=== PATIENT | female | born 1950 | race African-American/Black ===

== ENCOUNTER 2016-11-07 00:46 | Inpatient (IN) ==
[2016-11-07] MEDS ORDERED: HYDROmorphone 2 MG/1 ML VIAL IV STA (01:24)
[2016-11-07] MEDS ORDERED: ASPIRIN 325 MG TABLET PO STA (01:24)
[2016-11-07] MEDS ORDERED: ONDANSETRON 4 MG/2 ML VIAL IV STA ×2 (01:24→08:31)
[2016-11-07] MEDS ORDERED: NITROGLYCERIN 2% OINT 1 INCH/GM PACK TOP STA (01:47)
[2016-11-07] MEDS ORDERED: NITROGLYCERIN 2% OINT 1 INCH/GM PACK TOP ONE (01:58)
[2016-11-07] MEDS ORDERED: ONDANSETRON 4 MG/2 ML VIAL ONE ×3 (01:58→09:27)
[2016-11-07] MEDS ORDERED: ASPIRIN 325 MG TABLET ONE (01:59)
[2016-11-07] MEDS ORDERED: HYDROmorphone 2 MG/1 ML VIAL ONE (01:59)
[2016-11-07 03:00] LABS: Basophils % 0.2 % (0.0-0.8); Eosinophils # 0.2 10*3/uL (0.0-0.87); Eosinophils % 1.7 % (0.00-10.9); Hematocrit 19.8 VOL% (35.7-47.0); Immature Granulocytes % 0.6 %; Immature Granulocytes Absolute 0.05 #; Lymphocytes # 1.2 10*3/uL (1.4-4.0); Lymphocytes % 13.4 % (21.3-54.2); Mean Corpuscular HGB Conc 31.8 GM/DL (32-36); Mean Corpuscular Hemoglobin 30 PG (27-34); Mean Platelet Volume 11.1 FL (9.6-12.0); Monocytes # 0.5 10*3/uL (0.11-0.8); Monocytes % 6.1 % (1.7-12.7); Neutrophils # 6.8 10*3/uL (1.4-7.4); Platelet Count 184 T/CUMM (130-400); Red Blood Count 2.13 MC/CUMM (3.8-5.5); Red Cell Distribution Width 18.5 % (9.3-17.3); White Blood Count 8.7 T/CUMM (4-12)
[2016-11-07 03:03] LABS: Hemoglobin 6.3 GM/DL (12.0-16.0)
[2016-11-07 03:13] LABS: PT Patient Result 10.8 SECS; Partial Thromboplastin Time 28.7 SECS (0-40)
[2016-11-07 03:26] LABS: Albumin 3.1 G/DL (3.4-5.0); Bilirubin,Total 0.7 MG/DL (0.2-1.0); Calcium 7.9 MG/DL (8.5-10.1); Magnesium 2.4 MG/DL (1.8-2.4); Osmolality,Calculated 295.3 MOS/KG (273-304); Potassium 3.7 MMOL/L (3.5-5.1); Total Protein 6.8 G/DL (6.4-8.3)
[2016-11-07] MEDS ORDERED: cefTRIAXone 1,000 MG in SODIUM CHLORIDE 0.9% 100 ML IV STA (03:58)
[2016-11-07] MEDS ORDERED: LABETALOL 20 MG/4 ML SYRINGE IV STA (03:58)
[2016-11-07] MEDS ORDERED: LABETALOL 100 MG/20 ML VIAL IV ONE (04:22)
[2016-11-07] MEDS ORDERED: cefTRIAXone 1,000 MG VIAL ONE (04:22)
[2016-11-07] MEDS ORDERED: ACETAMINOPHEN 325 MG TABLET PO ONE (05:25)
--- NOTE | 2016-11-07 05:29 | Hospitalist History & Physical ---
Assessment and Plan (1) Pneumonia Status: Acute Assessment and plan: Patient has serious comorbidities needing admission at this point. Because she goes for dialysis. He was immunocompromised. Patient will be treated with broad-spectrum antibiotics to include coverage for pneumococcus coverage for typical pneumonia pathogens coverage for staphylococcal species and gram- negative fulcatative aerobic bacteria. She also antibiotics will be written as a rate 600 mg IV every 12 hours Piperacillin/tazobactam 2.25 g every 12 hours and levofloxacin 750 mg now and 750 every 48 hours after patient has had dialysis. Review antibiotics in 48 hours. If we do not have any isolates to use for decision on antibiotics treat the patient in for clinical picture and reviewed antibiotics at 5 days. She is being admitted to medical surgical floor. Current Visit: Yes Qualifiers: Pneumonia type: due to unspecified organism Laterality: right Lung location: lower lobe of lung Qualified Code(s): J18.1 - Lobar pneumonia, unspecified organism (2) Accelerated hypertension Status: Acute Assessment and plan: Patient was initially given labetalol in the emergency room with some response. Hopefully this blood pressure control will be better. If not then she will have to be put on IV Cardene titrating it up systolic blood pressure below 140 mmHg. Current Visit: Yes (3) End stage renal disease Status: Acute Assessment and plan: Patient will need dialysis in the hospital. I am consulting nephrology for these services. This patient is being admitted to Dr. Figueroa service I would assign her name to the patient Current Visit: Yes History of Present Illness Chief complaint: Shortness of breath and high blood pressure History of present illness: Ms. Lowe is a 66 year old female that was brought to the ED via EMS with c/o right arm pain and elevated blood pressure that began a few hours ago. Pt states the arm pain "shoots across my chest." Pt has associated sxs of SOB, coughing, and vomiting. Pt states she took her blood pressure medication about 2030 tonight but began coughing and vomiting and the medication came back up. Pt 's blood pressure upon triage was 237/99. Pt denies smoking. She denies a history of heart problems. Pt has a PMHx of HTN, DM, and renal failure. Pt states she is a dialysis pt and goes [facility] for dialysis, she states she did go Friday, November 04, 2016. Pt's roving weight gauger is Dr. Leach. No other complaints. When I saw the patient she was having shaking rigors. Has not had any documented fevers however. Count is normal. Chest x-ray shows consolidation in the right mid and lower lobe. Home Medications Medication Instructions Recorded Confirmed Type Carvedilol [Coreg] 6.25 mg PO BID 01/19/15 01/19/15 History Cinacalcet [Sensipar] 30 mg PO DAILY 01/19/15 01/19/15 History NIFEdipine [Nifedipine ER] 90 mg PO BEDTIME 01/19/15 01/19/15 History Pravastatin 10 tablet PO DAILY 01/19/15 01/19/15 History glipiZIDE [Glipizide] 5 mg PO BID 01/19/15 01/19/15 History Allergies Allergy/AdvReac Type Severity Reaction Status Date / Time Sulfa (Sulfonamide Allergy Severe RASH AND Verified 01/19/15 14:13 Antibiotics) BLACKOUT Medical,Surgical,& Family Hx - Medical History Cardio: History of: Hypertension Neurology: No history of: Seizures Renal: History of: Dialysis, Renal Failure - Surgical History Abdominal Surgeries: Surgical HX of: Cholecystectomy Reproductive Surgeries: Surgical HX of;: Hysterectomy - Family History Family History: Reports;: Family Diabetes (MOTHER), Family Heart Disease (FATHER ) - Social History Smoking Status: Unknown if ever smoked Frequency of Alcohol Use: None Type of Drug Use: None - Constitutional Constitutional: Present: chills - Cardiovascular Cardiovascular: Present: dyspnea - Respiratory Respiratory: Present: cough, other (Mostly nonproductive cough) - Gastrointestinal Gastrointestinal: Present: other (Signs and symptoms) - Genitourinary Genitourinary: Present: other (End-stage renal disease on hemodialysis) - Musculoskeletal Musculoskeletal: Present: other (Muscle aches) - Neurological Neurological: Present: other (Symptoms and signs) - Psychiatric Psychiatric: Present: other (Symptoms and signs) - Endocrine Endocrine: Present: other (History of diabetes) - Hematologic/Lymphatic Hematologic/Lymphatic: Present: other (Symptoms and signs) Exam - Constitutional Vitals: Period Temp Pulse Resp BP Sys/Quevedo Pulse Ox Last 24 Hr 97.4 F-97.4 F 95-95 20-20 273-273/99-99 98 General appearance: normal weight - Head Head exam: Present: normocephalic, atraumatic - Eye Eye exam: Present: EOMI, other (Anicteric sclera no conjunctival petechia) Pupils: Present: LEONIE - ENT ENT exam: Present: normal oropharynx - Neck Neck exam: Present: normal inspection, other (No JVD midline trachea no stridor) - Respiratory Respiratory exam: Present: other (Bronchoalveolar sounds in the right lung no wheezing occasional coughing paroxysms) - Cardiovascular Cardiovascular exam: Present: regular rate and rhythm, tachycardia - GI/Abdominal GI/Abdominal exam: Present: normal bowel sounds, soft - Extremities Exam Extremities exam: Present: full ROM - Back Exam Back exam: Present: normal inspection - Neurological Exam Neurological exam: Present: alert, oriented X3, CN II-XII intact - Psychiatric Psychiatric exam: Present: normal affect, normal mood, other - Skin Skin exam: Present: normal color, warm, dry Results - Labs CBC & BMP: 11/07/16 02:58 11/07/16 02:14 Lab Results: I have reviewed the past 24 hour labs - Diagnostic Findings Procedure: Abdominal x-ray: image reviewed by me (Right mid to right lower lobe pneumonia)
--- NOTE | 2016-11-07 05:45 | Emergency Department Note ---
Pasha Goodman Sierra, am scribing for, and in the presence of, Nydia Davies DO 01:29. ISamson Catherine, DO, personally performed the services described in this documentation, ascribed by Yani Pak in my presence, and it is both accurate and complete 545 . Arrival - Arrival Chief Complaint: Blood Pressure ED Nursing Triage Note: Patient complains of high blood pressure and shortness of breath. Blood pressure 273/99 upon triage. Patient is a dialysis patient. Last dialyzed on Monday11/04/16. Plsql Developer is Dr. Leach. Mode of Arrival: Stretcher Limitations: No Limitations Source: Patient Time Seen by Provider: 11/07/16 01:15 - History of Present Illness HPI Narrative: Pt is a 66 y/o female that was brought to the ED via EMS with c/o right arm pain and elevated blood pressure that began a few hours ago. Pt states the arm pain "shoots across my chest." Pt has associated sxs of SOB, coughing, and vomiting. Pt states she took her blood pressure medication about 2030 tonight but began coughing and vomiting and the medication came back up. Pt's blood pressure upon triage was 237/99. Pt denies smoking. She denies a history of heart problems. Pt has a PMHx of HTN, DM, and renal failure. Pt states she is a dialysis pt and goes [facility] for dialysis, she states she did go Friday, November 04, 2016. Pt's care process manager is Dr. Leach. No other complaints/pain in ED. Onset (ago): hour(s) Consistency: constant Severity: moderate Severity scale (1-10): 5 Quality: other Date of Last Menstrual Period: hysterectomy Allergies/Adverse Reactions: Allergies Allergy/AdvReac Type Severity Reaction Status Date / Time Sulfa (Sulfonamide Allergy Severe RASH AND Verified 01/19/15 14:13 Antibiotics) BLACKOUT Home Medications: Home Medications Medication Instructions Recorded Confirmed Type Carvedilol [Coreg] 6.25 mg PO BID 01/19/15 01/19/15 History Cinacalcet [Sensipar] 30 mg PO DAILY 01/19/15 01/19/15 History NIFEdipine [Nifedipine ER] 90 mg PO BEDTIME 01/19/15 01/19/15 History Pravastatin 10 tablet PO DAILY 01/19/15 01/19/15 History glipiZIDE [Glipizide] 5 mg PO BID 01/19/15 01/19/15 History Review of System - Review of System 12 point system: reviewed and no additional remarkable complaints except as stated - Review of System Constitutional: Absent: chills, fever Respiratory: Present: cough Cardiovascular: Present: chest pain (chest pain radiating from right arm pain) Gastrointestinal: Present: nausea, vomiting. Absent: abdominal pain Musculoskeletal: Present: arm pain (right arm pain). Absent: back pain, leg pain, neck pain Skin: Absent: rash Neurological: Absent: headache Psychiatric: Absent: anxiety Medical,Surgical,& Family Hx - Medical History Cardio: History of: CAD, Hypertension Neurology: No history of: Seizures Renal: History of: Dialysis, Renal Failure - Surgical History Surgical History: noncontributory Abdominal Surgeries: Surgical HX of: Cholecystectomy Reproductive Surgeries: Surgical HX of;: Hysterectomy - Family History Family History: Reports;: Family Diabetes (MOTHER), Family Heart Disease (FATHER ) - Social History Smoking Status: Unknown if ever smoked Frequency of Alcohol Use: None Type of Drug Use: None Marital Status: Unknown Functional capacity: independent ambulation Exam Vital Signs: Vital Signs Temperature 97.4 F L 11/07/16 01:00 Pulse Rate 95 H 11/07/16 01:00 Respiratory Rate 20 11/07/16 01:00 Blood Pressure 273/99 11/07/16 01:00 O2 Sat by Pulse Oximetry 98 11/07/16 01:00 - General General appearance: alert, in no apparent distress - Head Head exam: Present: atraumatic, normocephalic - Eye Eye exam: Present: PERRL, EOMI - ENT ENT exam: Present: normal exam, normal oropharynx, mucous membranes moist. Absent: mucous membranes dry - Neck Neck exam: Present: full ROM. Absent: tenderness - Chest Chest inspection: Present: symmetric chest wall rise. Absent: tenderness - Respiratory Respiratory exam: Present: wheezes (scattered wheezes). Absent: accessory muscle use, respiratory distress - Cardiovascular Cardiovascular exam: Present: regular rate, normal rhythm, normal heart sounds - Abdominal Exam Abdominal exam: Present: soft, normal bowel sounds. Absent: distention, tenderness, guarding - Extremities Exam Extremities exam: Present: normal inspection, full ROM. Absent: tenderness - Back Exam Back exam: Present: normal inspection, full ROM. Absent: tenderness - Neurological Exam Neurological exam: Present: alert, oriented X3, CN II-XII intact. Absent: motor sensory deficit - Psychiatric Psychiatric exam: Present: normal affect, normal mood - Skin Skin exam: Present: warm, dry - Other Other exam information: elevated blood pressure Course Course Narrative: This is a 66-year-old female she is a known diabetic she also does dialysis 3 days a week, and he was seen Monday and she is have blood pressure. She is visiting into the ER tonight following episode of right-sided chest pain and she became short of breath. The patient states she has had a cough a few days and she is coughed to the point that she vomits at times. She stated when she started getting the pain in her chest today she became concerned that she might that she might have an infection in her lungs. She has had no other complaints she did not have any syncope. She did not have any headache. The patient did go to dialysis this week Monday was EN Monday. Physical exam her vital signs are stable she is hypertensive. HEENT exam her mucous is moist her neck is supple heart is regular rate and rhythm her lungs are clear the anterior mendez she has rales rhonchi and decreased breath sounds at the bases especially on the right. Her abdomen is round soft nontender with good bowel sounds extremities are intact her neurologic exam is nonfocal for me. From the chest pain and CHF standpoint. I identified the patient is large pneumonia in her right lower lobe. We have treated her high blood pressure and she has had some antibiotics. I also gave her DuoNeb. The patient is feeling better at this time. I placed a phone call to Dr. Dinh diamond cutter for the hospitalist service who will be admitting the patient for further inpatient treatment. - Consultations Consultation #1: Dr. Roberts will admit the patient Time: 05:44 Results - Labs CBC & BMP: 11/07/16 02:58 11/07/16 02:14 Lab Results: I have reviewed the patients labs Labs: Laboratory Tests 11/07/16 02:58 RBC 2.13 L Hgb 6.3 L* Hct 19.8 L MCHC 31.8 L RDW 18.5 H Neut % (Auto) 78.0 H Lymph % (Auto) 13.4 L Lymph # (Auto) 1.2 L Laboratory Tests 11/07/16 02:14 INR 1.0 PT Patient/Control Mix 10.8 Circ Anticoag PTT 28.7 Laboratory Tests 11/07/16 02:14 Anion Gap 15.7 H BUN 53 H Creatinine 9.90 H BUN/Creatinine Ratio 5.00 L Glucose 111 H Calcium 7.9 L ALT 10 L Alkaline Phosphatase 37 L Albumin 3.1 L Globulin 3.7 H Albumin/Globulin Ratio 0.8 L Laboratory Tests 11/07/16 02:14 Troponin I 0.139 H Laboratory Tests 11/07/16 02:58 B-Natriuretic Peptide 2884 H - EKG EKG results: interpreted by ERMD - Impressions non specific no acute findings - Diagnostic Findings Procedure: Chest x-ray: image reviewed by me (pneumonia right lower lobe) Disposition Clinical Impression: Pneumonia, HTN (hypertension), Renal failure (ARF), acute on chronic Case discussed with: patient Disposition: Still a Patient Time of Disposition: 05:45
[2016-11-07] MEDS ORDERED: LEVOFLOXACIN INJ 150 ML IV ONE (06:03)
[2016-11-07] MEDS ORDERED: ACETAMINOPHEN 325 MG TABLET ONE (06:03)
[2016-11-07] MEDS: LEVOFLOXACIN INJ 750 MG in PREMIX 1 EACH IV SCH (06:18)
--- NOTE | 2016-11-07 06:59 | XRay Report ---
XR chest 1V portable Indication: Chest pain Comparison: 27 January 2015 Findings: The heart and mediastinum are stable in size and configuration. The pulmonary vascularity is increased with bilateral increased interstitial lung density. No other lung infiltrates, effusions, pneumothorax or other abnormality is demonstrated. Impression: Findings suggest cardiac decompensation. PROCEDURE INTERPRETED AT [facility] DEPARTMENT OF RADIOLOGY Final Report Signed by: Dr. Tom Torres
[2016-11-07] MEDS ORDERED: ONDANSETRON 4 MG/2 ML VIAL IV ONE (09:23)
[2016-11-07] MEDS: LINEZOLID INJ 600 MG in PREMIX 1 EACH IV SCH ×2 (11:01→21:33)
[2016-11-07] MEDS: CINACALCET 30 MG TABLET PO SCH (11:12)
[2016-11-07] MEDS ORDERED: SODIUM CHLORIDE 0.9% 250 ML IV PRN (11:17)
[2016-11-07] MEDS: CARVEDILOL 6.25 MG TABLET PO SCH ×2 (11:17→17:18)
[2016-11-07] MEDS: glipiZIDE 5 MG TABLET PO SCH ×2 (11:17→17:26)
--- NOTE | 2016-11-07 13:30 | Dialysis Note ---
Dialysis Note - Dialysis Note Ms. Lowe is same during her hemodialysis. She is tolerating it well with blood pressure 180 systolic. She somewhat short of breath and is having 3 L of fluid removed and he is to receive blood transfusion.
--- NOTE | 2016-11-07 14:06 | Nephrology Consult Note ---
History of Present Illness Chief complaint: End-stage renal disease History of present illness: Ms. Lowe is a 66 year old female with history of end-stage renal disease due to hypertension and diabetes dialyzes at the [facility] dialysis unit on a Monday schedule. On yesterday patient presented with increased shortness of breath and chest discomfort. Also associated with cough no fevers. Nephrology is been consulted for renal issues. Her follow-up chest x- ray shows some cardiac decompensation. Moreover hematocrit was noted to be 19.8. There is no history of blood in stool. There is no history of change in medications. At this time prepare for hemodialysis and will transfuse 3 units packed red blood cells. Home Medications Medication Instructions Recorded Confirmed Type NIFEdipine [Nifedipine ER] 90 mg PO BEDTIME 01/19/15 11/07/16 History glipiZIDE [Glipizide] 5 mg PO BID 01/19/15 11/07/16 History Calcium Carbonate Chew [Tums] 1 tablet PO TID W/MEALS 11/07/16 11/07/16 History Cyanocobalamin Tab [Vitamin B12 500 mcg PO DAILY 11/07/16 11/07/16 History Tab] Allergies Allergy/AdvReac Type Severity Reaction Status Date / Time Sulfa (Sulfonamide Allergy Severe RASH AND Verified 01/19/15 14:13 Antibiotics) [facility] Medical,Surgical,& Family Hx - Medical History Cardio: History of: CAD, Hypertension Neurology: No history of: Seizures Respiratory: History of: Pneumonia Renal: History of: Dialysis (in [place]), Renal Failure - Surgical History Abdominal Surgeries: Surgical HX of: Cholecystectomy Reproductive Surgeries: Surgical HX of;: Hysterectomy - Family History Family History: Reports;: Family Diabetes (MOTHER), Family Heart Disease (FATHER ) - Social History Smoking Status: Unknown if ever smoked Frequency of Alcohol Use: None Type of Drug Use: None Review of Systems Constitutional: fatigue, lethargy Cardiovascular: dyspnea, dyspnea on exertion Respiratory: cough, dyspnea Gastrointestinal: no abdominal pain, no bloating, no melena Exam - Vital Signs Vital signs: Period Temp Pulse Resp BP Sys/Quevedo Pulse Ox Last 24 Hr 97.7 F-98.2 F 78-99 22-23 174-204/80-95 93-97 - General Appearance General appearance: well-developed, fatigue, frail EENT: ATNC Neck: supple Respiratory: wheezing, rales Cardiology: regular rate, regular rhythm Gastrointestinal: normoactive bowel sounds, no tenderness Integumentary: no rash Neurologic: alert and oriented x3, CN 3-12 intact Musculoskeletal: no deformities, no clubbing Psychiatric: mood/affect appropriate Results - Labs CBC & BMP: 11/07/16 02:58 11/07/16 02:14 Assessment and Plan (1) Anemia Status: Acute Assessment and plan: Transfuse 2 units packed red blood cells on dialysis today. Current Visit: Yes (2) End stage renal disease Status: Chronic Assessment and plan: Continue with schedule hemodialysis on a Monday schedule. Current Visit: No (3) Diabetes mellitus Status: Chronic Current Visit: No Qualifiers: Diabetes mellitus type: type 2 Diabetes mellitus complication status: with kidney complications Chronic kidney disease stage: on chronic dialysis (4) Hypertension Status: Chronic Current Visit: No Qualifiers: Hypertension type: essential hypertension Qualified Code(s): I10 - Essential (primary) hypertension (5) Pneumonia Status: Acute Assessment and plan: Currently on broad-spectrum antibiotics. Current Visit: Yes Qualifiers: Pneumonia type: due to unspecified organism Laterality: right Lung location: lower lobe of lung Qualified Code(s): J18.1 - Lobar pneumonia, unspecified organism (6) End stage renal disease Status: Chronic Current Visit: Yes
[2016-11-07] MEDS: PIPERACILLIN/TAZOBACTAM 3,375 MG in SODIUM CHLORIDE 0.9% 100 ML IV SCH (17:13)
[2016-11-07 18:06] LABS: Hematocrit 33.8 VOL% (35.7-47.0)
[2016-11-07 18:08] LABS: Hemoglobin 11.1 GM/DL (12.0-16.0)
[2016-11-07] MEDS: PRAVASTATIN 20 MG TABLET PO SCH (21:33)
[2016-11-08] MEDS: PIPERACILLIN/TAZOBACTAM 3,375 MG in SODIUM CHLORIDE 0.9% 100 ML IV SCH ×2 (04:31→16:36)
[2016-11-08] MEDS: LINEZOLID INJ 600 MG in PREMIX 1 EACH IV SCH ×2 (09:08→21:01)
[2016-11-08] MEDS: glipiZIDE 5 MG TABLET PO SCH ×2 (09:08→16:36)
[2016-11-08] MEDS: CINACALCET 30 MG TABLET PO SCH (09:09)
[2016-11-08] MEDS: CARVEDILOL 6.25 MG TABLET PO SCH ×2 (09:09→16:36)
--- NOTE | 2016-11-08 11:26 | Hospitalist Progress Note ---
Assessment and Plan (1) Pneumonia Status: Resolved Assessment and plan: 1)acute hypoxic respiratory failure- due to pneumonia and renal related volume overload- continue antibiotics, volume addressed at HD yesterday and she is feeling much better. Repeat CXR in am. BCx negative so far. 2)ESRD on HD 3)diabetes- on glucotrol. glucose well controlled 4)anemia- related to ESRD most likely. check stool guaiac also. nice bump in H& H with 3 units at HD. Current Visit: Yes Qualifiers: Pneumonia type: due to unspecified organism Laterality: right Lung location: lower lobe of lung Qualified Code(s): J18.1 - Lobar pneumonia, unspecified organism (2) End stage renal disease Status: Chronic Current Visit: No (3) Secondary hyperparathyroidism Status: Acute Current Visit: No (4) Diabetes mellitus Status: Chronic Current Visit: No Qualifiers: Diabetes mellitus type: type 2 Diabetes mellitus complication status: with kidney complications Chronic kidney disease stage: on chronic dialysis (5) Hypertension Status: Chronic Current Visit: No Qualifiers: Hypertension type: essential hypertension Qualified Code(s): I10 - Essential (primary) hypertension (6) End stage renal disease Status: Resolved Current Visit: Yes (7) HTN (hypertension) Status: Acute Current Visit: Yes (8) Anemia Status: Acute Current Visit: Yes Hospitalist: Subjective Interval history: Mrs Lowe is breathing much easier today. She is disappointed because she wasn 't able to finish her breakfast because she got full first. She denies pain. Tolerated HD and transfusion yesterday. Exam - Constitutional Vitals: Period Temp Pulse Resp BP Sys/Quevedo Pulse Ox Last 24 Hr 97.9 F-99.1 F 73-87 17-20 149-217/81-125 91-99 General appearance: normal weight, no acute distress - Head Head exam: Present: normocephalic, atraumatic - Eye Eye exam: Present: EOMI. Absent: scleral icterus - Respiratory Respiratory exam: Present: rales (a few at bases). Absent: wheezes - Cardiovascular Cardiovascular exam: Present: regular rate and rhythm - GI/Abdominal GI/Abdominal exam: Present: normal bowel sounds, soft. Absent: tenderness - Extremities Exam Extremities exam: Absent: edema - Neurological Exam Neurological exam: Present: alert, oriented X3 - Skin Skin exam: Present: warm, dry Results - Labs CBC & BMP: 11/07/16 17:37 11/07/16 02:14 Lab Results: I have reviewed the past 24 hour labs Quality Measures - Stroke Symptom Onset Unknown: No
[2016-11-08] MEDS: PRAVASTATIN 20 MG TABLET PO SCH (21:00)
--- NOTE | 2016-11-08 22:49 | Nephrology Progress Note ---
Nephrology - PN: Subj Interval history: The patient is resting. She does describe some discomfort in the access arm. No fevers or chills. Exam (PN)-Nephrology - Vital Signs Vital signs: Period Temp Pulse Resp BP Sys/Quevedo Pulse Ox Last 24 Hr 98.2 F-98.6 F 72-78 17-77 113-193/67-88 90-98 - General Appearance General appearance: well-developed, well-nourished EENT: ATNC Neck: supple Respiratory: clear Cardiology: regular rate, regular rhythm Gastrointestinal: normoactive bowel sounds, no tenderness Integumentary: no rash Neurologic: alert and oriented x3 Musculoskeletal: no deformities, no erythema Psychiatric: mood/affect appropriate, cooperative - Lab 11/07/16 17:37 11/07/16 02:14 Most recent lab results Calcium 7.9 MG/DL (8.5-10.1) L 11/07/16 02:14 Magnesium 2.4 MG/DL (1.8-2.4) 11/07/16 02:14 Assessment and Plan (1) Anemia Status: Acute Current Visit: Yes (2) End stage renal disease Status: Chronic Assessment and plan: Continue with schedule hemodialysis on a Monday schedule. Current Visit: No (3) Diabetes mellitus Status: Chronic Current Visit: No Qualifiers: Diabetes mellitus type: type 2 Diabetes mellitus complication status: with kidney complications Chronic kidney disease stage: on chronic dialysis (4) Hypertension Status: Chronic Current Visit: No Qualifiers: Hypertension type: essential hypertension Qualified Code(s): I10 - Essential (primary) hypertension (5) Pneumonia Status: Acute Assessment and plan: Currently on broad-spectrum antibiotics. Current Visit: Yes Qualifiers: Pneumonia type: due to unspecified organism Laterality: right Lung location: lower lobe of lung Qualified Code(s): J18.1 - Lobar pneumonia, unspecified organism (6) End stage renal disease Status: Chronic Current Visit: Yes
[2016-11-09] MEDS: PIPERACILLIN/TAZOBACTAM 3,375 MG in SODIUM CHLORIDE 0.9% 100 ML IV SCH ×2 (04:57→16:10)
[2016-11-09] MEDS: ONDANSETRON 4 MG/2 ML VIAL IV PRN (06:46)
[2016-11-09] MEDS: glipiZIDE 5 MG TABLET PO SCH (07:30)
[2016-11-09] MEDS ORDERED: DEXTROSE 50% 25 GM/50 ML VIAL IV ONE (07:35)
[2016-11-09] MEDS: CARVEDILOL 6.25 MG TABLET PO SCH ×2 (08:28→16:25)
[2016-11-09] MEDS: LINEZOLID INJ 600 MG in PREMIX 1 EACH IV SCH ×2 (08:28→22:30)
[2016-11-09] MEDS: CINACALCET 30 MG TABLET PO SCH (08:28)
--- NOTE | 2016-11-09 08:58 | XRay Report ---
XR chest 1V Indication: Pneumonia versus fluid overload. Comparison: Chest x-ray 11/07/2016 Technique: Portable AP chest was performed. Findings: [id number] cardiomegaly is stable. Central vasculature demonstrates minimal prominence. Opacification in the mid to lateral aspect of the lower right lung has partially cleared since the comparison study. Lungs otherwise clear. Impression: 1. Interval partial clearing of the right lung. Otherwise stable chest. 11/09/2016 8:55 AM PROCEDURE INTERPRETED AT [facility] DEPARTMENT OF RADIOLOGY Final Report Signed by: Dr. Lenny Kay
[2016-11-09] MEDS ORDERED: GLUCAGON 1 MG VIAL IM PRN (13:32)
[2016-11-09] MEDS ORDERED: DEXTROSE 50% 25 GM/50 ML VIAL IV PRN (13:32)
--- NOTE | 2016-11-09 13:32 | Hospitalist Progress Note ---
Assessment and Plan (1) Pneumonia Status: Acute Assessment and plan: 1)acute hypoxic respiratory failure- due to pneumonia and renal related volume overload- continue antibiotics, volume addressed at HD and she is feeling much better. CXR this morning improved, her sats are ok on room air this morning. BCx negative so far. 2)ESRD on HD 3)diabetes- on glucotrol. glucose low this morning. Change to SSI, stop orals. 4)anemia- related to ESRD most likely. check stool guaiac also. nice bump in H& H with 3 units at HD. Current Visit: Yes Qualifiers: Pneumonia type: due to unspecified organism Laterality: right Lung location: lower lobe of lung Qualified Code(s): J18.1 - Lobar pneumonia, unspecified organism (2) End stage renal disease Status: Chronic Current Visit: No (3) Secondary hyperparathyroidism Status: Acute Current Visit: No (4) Diabetes mellitus Status: Chronic Current Visit: No Qualifiers: Diabetes mellitus type: type 2 Diabetes mellitus complication status: with kidney complications Chronic kidney disease stage: on chronic dialysis (5) Hypertension Status: Chronic Current Visit: No Qualifiers: Hypertension type: essential hypertension Qualified Code(s): I10 - Essential (primary) hypertension (6) End stage renal disease Status: Chronic Current Visit: Yes (7) HTN (hypertension) Status: Acute Current Visit: Yes (8) Anemia Status: Acute Current Visit: Yes Hospitalist: Subjective Interval history: Mrs Lowe is feeling better from resp standpoint, but was cramping severly when I saw her on dialysis. She is now breathing comfortably on room air. Exam - Constitutional Vitals: Period Temp Pulse Resp BP Sys/Quevedo Pulse Ox Last 24 Hr 97.6 F-98.7 F 67-76 18-20 113-164/69-81 90-97 General appearance: normal weight, no acute distress - Head Head exam: Present: normocephalic, atraumatic - Eye Eye exam: Present: EOMI. Absent: scleral icterus - Respiratory Respiratory exam: Present: rales (at bases, left more than right). Absent: wheezes - Cardiovascular Cardiovascular exam: Present: regular rate and rhythm - GI/Abdominal GI/Abdominal exam: Present: normal bowel sounds, soft. Absent: tenderness - Extremities Exam Extremities exam: Absent: edema Results - Labs CBC & BMP: 11/07/16 17:37 11/07/16 02:14 Lab Results: I have reviewed the past 24 hour labs Quality Measures - Stroke Symptom Onset Unknown: No
[2016-11-09] MEDS: INSULIN LISPRO 100 UNIT/ML SUBCUT SCH ×2 (16:33→22:37)
--- NOTE | 2016-11-09 19:59 | Nephrology Progress Note ---
Nephrology - PN: Subj Interval history: Patient is resting comfortably no acute changes. No shortness of breath or chest pain. She does complain of some cramping in her access arm at times. Exam (PN)-Nephrology - Vital Signs Vital signs: Period Temp Pulse Resp BP Sys/Quevedo Pulse Ox Last 24 Hr 97.6 F-98.7 F 67-76 18-20 141-164/61-77 90-97 - General Appearance General appearance: well-developed, well-nourished EENT: ATNC Neck: supple Respiratory: clear Cardiology: regular rate, regular rhythm Gastrointestinal: normoactive bowel sounds, no masses Integumentary: no rash Neurologic: CN 3-12 intact Musculoskeletal: no clubbing Psychiatric: mood/affect appropriate, cooperative - Lab 11/07/16 17:37 11/07/16 02:14 Most recent lab results Calcium 7.9 MG/DL (8.5-10.1) L 11/07/16 02:14 Magnesium 2.4 MG/DL (1.8-2.4) 11/07/16 02:14 Assessment and Plan (1) Anemia Status: Acute Current Visit: Yes (2) End stage renal disease Status: Chronic Assessment and plan: Continue with schedule hemodialysis on a Monday schedule. Current Visit: No (3) Diabetes mellitus Status: Chronic Current Visit: No Qualifiers: Diabetes mellitus type: type 2 Diabetes mellitus complication status: with kidney complications Chronic kidney disease stage: on chronic dialysis (4) Hypertension Status: Chronic Current Visit: No Qualifiers: Hypertension type: essential hypertension Qualified Code(s): I10 - Essential (primary) hypertension (5) Pneumonia Status: Acute Assessment and plan: Currently on broad-spectrum antibiotics. Current Visit: Yes Qualifiers: Pneumonia type: due to unspecified organism Laterality: right Lung location: lower lobe of lung Qualified Code(s): J18.1 - Lobar pneumonia, unspecified organism (6) End stage renal disease Status: Chronic Current Visit: Yes
[2016-11-09] MEDS: PRAVASTATIN 20 MG TABLET PO SCH (20:50)
[2016-11-09] MEDS: LEVOFLOXACIN INJ 750 MG in PREMIX 1 EACH IV SCH (20:51)
[2016-11-10] MEDS: PIPERACILLIN/TAZOBACTAM 3,375 MG in SODIUM CHLORIDE 0.9% 100 ML IV SCH ×2 (04:58→16:50)
[2016-11-10] MEDS: INSULIN LISPRO 100 UNIT/ML SUBCUT SCH ×4 (09:30→21:18)
[2016-11-10] MEDS: CARVEDILOL 6.25 MG TABLET PO SCH ×2 (10:42→16:52)
[2016-11-10] MEDS: CINACALCET 30 MG TABLET PO SCH (10:42)
[2016-11-10] MEDS: LINEZOLID INJ 600 MG in PREMIX 1 EACH IV SCH ×2 (10:42→21:18)
--- NOTE | 2016-11-10 13:42 | Hospitalist Progress Note ---
Assessment and Plan (1) Pneumonia Status: Acute Assessment and plan: 1)acute hypopxic respiratory failure due to pneumonia and volume overload fromrenal disease- on antibiotics and fluid removed at HD, she is breathing easier. Repeat CXR tomorrow. Cultures negative. if CXR continuing to clear, coulddeescalate antibiotics and consider discharge plan. 2)ESRD- on HD 3)diabetes- on SSI for now- glucose low yesterday on orals. likely eats differently at home. 4)anemia form ESRD- transfused. stool guaiac pending. Current Visit: Yes Qualifiers: Pneumonia type: due to unspecified organism Laterality: right Lung location: lower lobe of lung Qualified Code(s): J18.1 - Lobar pneumonia, unspecified organism (2) End stage renal disease Status: Chronic Current Visit: No (3) Secondary hyperparathyroidism Status: Acute Current Visit: No (4) Diabetes mellitus Status: Chronic Current Visit: No Qualifiers: Diabetes mellitus type: type 2 Diabetes mellitus complication status: with kidney complications Chronic kidney disease stage: on chronic dialysis (5) Hypertension Status: Chronic Current Visit: No Qualifiers: Hypertension type: essential hypertension Qualified Code(s): I10 - Essential (primary) hypertension (6) End stage renal disease Status: Chronic Current Visit: Yes (7) HTN (hypertension) Status: Acute Current Visit: Yes (8) Anemia Status: Acute Current Visit: Yes Hospitalist: Subjective Interval history: Mrs Lowe is feeling tired and "rough" today. Her breathing is comfortable at rest. She has a persistent soreness at her right chest where she had work done on her access [facility]. Exam - Constitutional Vitals: Period Temp Pulse Resp BP Sys/Quevedo Pulse Ox Last 24 Hr 97.5 F-99.0 F 67-82 18-20 138-167/61-73 92-99 General appearance: normal weight, no acute distress - Head Head exam: Present: normocephalic, atraumatic - Eye Eye exam: Present: EOMI. Absent: scleral icterus - Respiratory Respiratory exam: Present: rales (in posterior mendez, improved.) - Cardiovascular Cardiovascular exam: Present: regular rate and rhythm - GI/Abdominal GI/Abdominal exam: Present: normal bowel sounds, soft. Absent: tenderness - Extremities Exam Extremities exam: Absent: edema - Neurological Exam Neurological exam: Present: alert, oriented X3 - Skin Skin exam: Present: warm, dry Results - Labs CBC & BMP: 11/07/16 17:37 11/07/16 02:14 Lab Results: I have reviewed the past 24 hour labs Quality Measures - Stroke Symptom Onset Unknown: No
--- NOTE | 2016-11-10 19:26 | Nephrology Progress Note ---
Nephrology - PN: Subj Interval history: Patient is resting comfortably no acute changes. Exam (PN)-Nephrology - Vital Signs Vital signs: Period Temp Pulse Resp BP Sys/Quevedo Pulse Ox Last 24 Hr 97.5 F-99.0 F 66-82 19-20 131-167/63-73 93-99 - General Appearance General appearance: well-developed, well-nourished EENT: ATNC Neck: supple Respiratory: clear Cardiology: regular rate, regular rhythm Gastrointestinal: normoactive bowel sounds, no tenderness, no guarding Musculoskeletal: no clubbing Psychiatric: mood/affect appropriate - Lab 11/07/16 17:37 11/07/16 02:14 Most recent lab results Calcium 7.9 MG/DL (8.5-10.1) L 11/07/16 02:14 Magnesium 2.4 MG/DL (1.8-2.4) 11/07/16 02:14 Assessment and Plan (1) Anemia Status: Acute Current Visit: Yes (2) End stage renal disease Status: Chronic Assessment and plan: Continue with schedule hemodialysis on a Monday schedule. Current Visit: No (3) Diabetes mellitus Status: Chronic Current Visit: No Qualifiers: Diabetes mellitus type: type 2 Diabetes mellitus complication status: with kidney complications Chronic kidney disease stage: on chronic dialysis (4) Hypertension Status: Chronic Current Visit: No Qualifiers: Hypertension type: essential hypertension Qualified Code(s): I10 - Essential (primary) hypertension (5) Pneumonia Status: Acute Assessment and plan: Currently on broad-spectrum antibiotics. Current Visit: Yes Qualifiers: Pneumonia type: due to unspecified organism Laterality: right Lung location: lower lobe of lung Qualified Code(s): J18.1 - Lobar pneumonia, unspecified organism (6) End stage renal disease Status: Chronic Current Visit: Yes
[2016-11-10] MEDS: PRAVASTATIN 20 MG TABLET PO SCH (21:18)
[2016-11-10] MEDS: ONDANSETRON 4 MG/2 ML VIAL IV PRN (22:41)
[2016-11-11] MEDS: PIPERACILLIN/TAZOBACTAM 3,375 MG in SODIUM CHLORIDE 0.9% 100 ML IV SCH (04:19)
[2016-11-11 04:21] LABS: Calcium 6.8 MG/DL (8.5-10.1); Osmolality,Calculated 271.5 MOS/KG (273-304); Potassium 3.4 MMOL/L (3.5-5.1)
--- NOTE | 2016-11-11 08:30 | XRay Report ---
XR chest 1V Indication: Pneumonia Comparison: 09 November 2016 Findings: The heart and mediastinum are normal in size and configuration. The pulmonary vascularity is normal in caliber. Improvement of right lower lung density. No other lung infiltrates, effusions, pneumothorax or other abnormality is demonstrated. Impression: Slight improving right lower lung density. No other significant changes. PROCEDURE INTERPRETED AT [facility] DEPARTMENT OF RADIOLOGY Final Report Signed by: Dr. Tom Torres
[2016-11-11] MEDS: LINEZOLID INJ 600 MG in PREMIX 1 EACH IV SCH (08:47)
[2016-11-11] MEDS: CINACALCET 30 MG TABLET PO SCH (08:48)
[2016-11-11] MEDS: CARVEDILOL 6.25 MG TABLET PO SCH ×2 (08:48→17:51)
[2016-11-11] MEDS: INSULIN LISPRO 100 UNIT/ML SUBCUT SCH ×3 (08:52→21:02)
--- NOTE | 2016-11-11 09:08 | Dialysis Note ---
Dialysis Note - Dialysis Note Ms. Lowe is seen during her hemodialysis. She is tolerating dialysis well. She is breathing comfortably, much better than earlier in the week. Plan is to continue with her hemodialysis. Her chest x-ray looks much better today compared with its appearance on presentation.
[2016-11-11] MEDS: ONDANSETRON 4 MG/2 ML VIAL IV PRN (13:10)
--- NOTE | 2016-11-11 15:01 | Hospitalist Progress Note ---
Assessment and Plan (1) Pneumonia Status: Acute Assessment and plan: 1)acute hypoxic resp failure- pneumonia and volume overload from renal cause- lungs cleared with serial dialysis, no cough, no fever, WBC normal. Plan to dc home on antibiotics to complete course of treatment for pneumonia/bronchitis. 2)nausea- this happens when her blood sugar drops she says. monitor. I suspect that in hosp on our diet, her carb intake is lower than at home. She can probably take her orals at discharge as before. She has oral zofran also for times when her sugar is low and she is nauseated. 3)diabetes 4)anemia- reorder stool guaiac. transfused. Current Visit: Yes Qualifiers: Pneumonia type: due to unspecified organism Laterality: right Lung location: lower lobe of lung Qualified Code(s): J18.1 - Lobar pneumonia, unspecified organism (2) End stage renal disease Status: Chronic Current Visit: No (3) Secondary hyperparathyroidism Status: Acute Current Visit: No (4) Diabetes mellitus Status: Chronic Current Visit: No Qualifiers: Diabetes mellitus type: type 2 Diabetes mellitus complication status: with kidney complications Chronic kidney disease stage: on chronic dialysis (5) Hypertension Status: Chronic Current Visit: No Qualifiers: Hypertension type: essential hypertension Qualified Code(s): I10 - Essential (primary) hypertension (6) End stage renal disease Status: Chronic Current Visit: Yes (7) HTN (hypertension) Status: Acute Current Visit: Yes (8) Anemia Status: Acute Current Visit: Yes Hospitalist: Subjective Interval history: Mrs Lowe is feeling much better than on presentation, continuing have good room air sats and get around in the room without too much fatigue. her CXR also looks cleared up. We discussed discharge today but her sugar has dropped and she has some nausea, and I think it would be prudent fo rher to delay discharge until tomorrow. She also needs a stool guaiac to follow up on her anemia. If this isn't done prior to tomorrow she can do it as an outpatient. Exam - Constitutional Vitals: Period Temp Pulse Resp BP Sys/Quevedo Pulse Ox Last 24 Hr 97.5 F-98.3 F 66-71 16-20 131-191/63-80 95-100 General appearance: normal weight, no acute distress - Eye Eye exam: Present: EOMI. Absent: scleral icterus - Respiratory Respiratory exam: Present: clear to auscultation bilaterally - Cardiovascular Cardiovascular exam: Present: regular rate and rhythm - GI/Abdominal GI/Abdominal exam: Present: normal bowel sounds, soft. Absent: tenderness - Extremities Exam Extremities exam: Absent: edema Results - Labs CBC & BMP: 11/07/16 17:37 11/11/16 02:55 Lab Results: I have reviewed the past 24 hour labs Quality Measures - Stroke Symptom Onset Unknown: No
[2016-11-11] MEDS: CALCIUM CARBONATE CHEW 500 MG TABLET PO SCH (17:51)
[2016-11-11] MEDS: PRAVASTATIN 20 MG TABLET PO SCH (20:54)
[2016-11-11] MEDS: LEVOFLOXACIN INJ 750 MG in PREMIX 1 EACH IV SCH (20:55)
[2016-11-12] MEDS ORDERED: CYANOCOBALAMIN 500 MCG TABLET PO SCH (09:00)
[2016-11-12] MEDS: CALCIUM CARBONATE CHEW 500 MG TABLET PO SCH ×2 (09:12→11:37)
[2016-11-12] MEDS: CARVEDILOL 6.25 MG TABLET PO SCH (09:12)
[2016-11-12] MEDS: CINACALCET 30 MG TABLET PO SCH (09:12)
[2016-11-12] MEDS: INSULIN LISPRO 100 UNIT/ML SUBCUT SCH ×2 (09:30→11:45)
--- NOTE | 2016-11-12 10:06 | Discharge Summary ---
Hospital Course - Hospital Course Hospital Course: Discharge diagnosis: 1. Pulmonary vascular congestion 2. End stage renal disease The patient was admitted with pulmonary vascular congestion. Initially, there was a thought that she might have pneumonia. However she improved rapidly once dialysis was reinstituted. On the morning after dialysis, she tells me that she feels great, and wants to go home. She has been on dialysis for more than 10 years. This note was completed using [employer] voice recognition software. There may be human resources associate errors as a result. Discharge Plan - Discharge Data Disposition: Disch To Home/Self Care Condition at Discharge: Stable Discharge Diet: advance to your usual diet Activity: resume usual activities as tolerated Hygiene: no restrictions Weight Bearing at Discharge: full weight bearing Driving: no restrictions - Discharge Medications New Carvedilol [Coreg] 6.25 mg PO BID W/MEALS tablet Cinacalcet [Sensipar] 30 mg PO DAILY tablet Pravastatin [Pravachol] 10 mg PO BEDTIME tablet Continue NIFEdipine [Nifedipine ER] 90 mg PO BEDTIME glipiZIDE [Glipizide] 5 mg PO BID Cyanocobalamin Tab [Vitamin B12 Tab] 500 mcg PO DAILY Calcium Carbonate Chew [Tums] 1 tablet PO TID W/MEALS - Follow Up or Referral - Forms/Instructions Exam - Constitutional Vitals: Period Temp Pulse Resp BP Sys/Quevedo Pulse Ox Last 24 Hr 97.3 F-98.8 F 68-72 18-22 174-188/73-77 97-99 She is afebrile. Heart is regular with a soft systolic murmur and no gallop. She has a few scattered rales in the chest, but the lungs are mostly clear. Discharge Results Labs on day of discharge: Labs from last 24 hours 11/12/16 11/11/16 11/11/16 08:24 19:44 15:47 POC Glucose 79 171 H 201 H 11/11/16 13:07 POC Glucose 69 L DS: Provider Date of admission: 11/07/16 08:24 Primary care physician: . No PCP Attending physician on admission: Leanna Lopez MD Consults: 11/07/16 10:07 Consult to Dietitian [CONS] Routine Reason for Dietitian: Other Discharging clinician: Home Tyson MD Expected date of discharge: 11/12/16
[2016-11-12 12:42] VITALS: BP 150/81
== END 2016-11-12 12:43 | disposition home or self-care (01) | DRG 682 ==
LOC: EDUNIT# → SUATTDRO → EDBD → EDSEX → N.ED 00:46 → N.EDINP 08:24 → SUATTDRO 08:24 → N.2E 08:57
PROVIDERS: ADMIT Internal Medicine; ATTEND Internal Medicine Geriatric Medicine

== ENCOUNTER 2019-04-04 08:11 | Inpatient (IN) ==
[2019-04-04] MEDS ORDERED: DOPamine 800 MG/250 ML PREMIX IV ONE (09:09)
[2019-04-04] MEDS ORDERED: DOPamine 800 MG/250 ML PREMIX IV PRN (09:14)
[2019-04-04] MEDS ORDERED: SODIUM CHLORIDE 0.9% 1,000 ML IV ONE ×2 (09:30→10:16)
[2019-04-04] MEDS ORDERED: DEXTROSE 10% 250 ML BAG IV ONE (09:40)
[2019-04-04] MEDS ORDERED: EPINEPHrine 1 MG/ML VIAL ONE (09:44)
[2019-04-04] MEDS ORDERED: EPINEPHrine 1 MG/10 ML SYRINGE IV ONE ×2 (09:50→10:05)
[2019-04-04] MEDS ORDERED: AMIODARONE INJ 450 MG in DEXTROSE 5% 241 ML IV SCH ×2 (10:00→18:00)
[2019-04-04] MEDS ORDERED: EPINEPHrine 1 MG/10 ML SYRINGE IV STA (10:02)
[2019-04-04] MEDS ORDERED: SODIUM BICARBONATE 50 MEQ/50 ML VIAL IV ONE (10:20)
[2019-04-04] MEDS ORDERED: PHENYLEPHRINE DRIP 40 MG/250 ML PREMIX IV SCH (10:30)
[2019-04-04] MEDS ORDERED: SODIUM CHLORIDE 0.9% 1,000 ML IV SCH (10:30)
[2019-04-04] MEDS ORDERED: ACETAMINOPHEN 325 MG TABLET PO PRN (10:30)
[2019-04-04] MEDS ORDERED: ONDANSETRON 4 MG/2 ML VIAL IV PRN (10:30)
[2019-04-04] MEDS ORDERED: ALBUTEROL 2.5 MG/3 ML NEB RESP TX PRN (10:30)
[2019-04-04 10:37] LABS: ABG Base Excess -14.5 MMOL/L (-2.5-2.5); ABG HCO3 12.2 MMOL/L (20-26); ABG PCO2 68.7 MM HG (35-48); ABG TCO2 17.3 MMOL/L (23-27); Hematocrit Heart Surgery 26.4 PERCENT (37-47); Hemoglobin Heart Surgery 8.5 G/DL (12.0-16.0); Potassium Heart/CVR 3.7 MMOL/L (3.5-5.1)
[2019-04-04 10:38] LABS: ABG PH 7.004 (7.35-7.45)
[2019-04-04 10:39] LABS: ABG PO2 22.4 MM HG (80-95); Glucose Heart Surgery 529 MG/DL (74-106)
[2019-04-04 10:50] LABS: Basophils % 0.3 % (0.0-0.8); Eosinophils % 0.3 % (0.00-10.9); Hematocrit 28.4 VOL% (35.7-47.0); Hemoglobin 8.2 GM/DL (12.0-16.0); Immature Granulocytes % 5.3 %; Immature Granulocytes Absolute 0.39 #; Lymphocytes % 26.5 % (21.3-54.2); Mean Corpuscular HGB Conc 28.9 GM/DL (32-36); Mean Platelet Volume 11.6 FL (9.6-12.0); Monocytes % 3.8 % (1.7-12.7); NRBC # 0.05 10*3/uL; Neutrophils % 63.8 % (38.7-73.9); Platelet Count 101 T/CUMM (130-400); Red Blood Count 2.63 MC/CUMM (3.8-5.5); Red Cell Distribution Width 18.3 % (9.3-17.3); White Blood Count 7.4 T/CUMM (4-12)
[2019-04-04] MEDS ORDERED: PANTOPRAZOLE 40 MG VIAL IV SCH (11:00)
[2019-04-04 11:07] LABS: INR 2.2
[2019-04-04 11:08] LABS: PT Patient Result 23.5 SECS (9.6-12.2)
[2019-04-04 11:09] LABS: Band Neutrophils 2 % (0-10); Burr Cells Slight; Hypochromasia 1+; Lymphocytes 37 % (20-55); Ovalocytes Slight; Platelet Estimate Decreased; Segmented Neutrophils 57 % (50-85); Total Cells Counted 100
[2019-04-04 11:10] LABS: Albumin 1.8 G/DL (3.4-5.0); Bilirubin,Total 1.4 MG/DL (0.2-1.0); Calcium 7.2 MG/DL (8.5-10.1); Osmolality,Calculated 297.8 MOS/KG (273-304); Total Protein 4.6 G/DL (6.4-8.3)
[2019-04-04 11:15] LABS: HDL Cholesterol 28 MG/DL (40-60); Risk Ratio 2.07; Triglycerides 77 MG/DL (2-150); VLDL CHOLESTEROL 15.4 MG/DL
[2019-04-04] MEDS ORDERED: ALBUTEROL/IPRATROPIUM 3 ML NEB RESP TX SCH (13:00)
[2019-04-04 18:43] VITALS: BP 15/14
== END 2019-04-04 10:57 | disposition expired | DRG 291 ==
LOC: SUATTDRO 09:07 → N.CC 09:07
PROVIDERS: ADMIT Internal Medicine; ATTEND Internal Medicine